=== PATIENT | female | born 2005 | race African-American/Black ===

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

== ENCOUNTER 2024-11-05 18:34 | Emergency (ER) | payer OTHER, SELFPAY ==
--- NOTE | ~2024-11-05 | CT_ITS ---
CLINICAL INDICATION: COMPARISON: . TECHNIQUE: Multiple contiguous axial images of the abdomen and pelvis were performed following the ad ministration of with 100 mL Omnipaque-350 intravenous contrast The dose-length product (DLP) was 191.76 mGy-cm. Automated exposure control and iterative reconstruction technique were employed. FINDINGS/OBSERVATIONS: Visualized lower thorax: The bilateral lung bases are clear. The heart is of normal size, without pericardial effusion. Small hiatal hernia is present. Liver: The liver demonstrates homogeneous enhancement and is not enlarged. Gallbladder and biliary system: The gallbladder is only minimally distended, and otherwise unremarkable. Pancreas: The pancreas enhances homogeneously without ductal dilatation. Spleen: The spleen enhances homogeneously and is not enlarged. Kidneys: The bilateral kidneys enhance symmetrically without hydronephrosis or renal calculi. Adrenal glands: Unremarkable. Gastrointestinal tract: Fecal stasis within the colon. Appendix: The air-filled appendix is of normal caliber (axial series, images 108 through 114). Vasculature: Unremarkable. Lymph nodes: No pathologically enlarged or morphologically suspicious lymph nodes within the retroperitoneum or at the root of the mesentery. Pelvic structures: The bladder is decompressed, and otherwise unremarkable. The uterus is anteverted and anteflexed, and otherwise unremarkable. Body wall and musculoskeletal: No significant degenerative disease within the lower thoracic or lumbosacral spine. IMPRESSION: No acute findings within the abdomen or pelvis, as detailed above. Reviewed, dictated and finalized at location A.
[2024-11-05 18:35] VITALS: BP 108/64; PULSE 127; RESP 16; TEMP 36.6; O2SAT 100
--- OUTSIDE RECORDS SUMMARY | 2024-11-05 18:36 | XMS_ITS | Clinical Summary ---
Author Organization [facility] Address [address] [place] [address] Care Team Providers Care Wood Stainer Name Role Phone Suhail Garibay MD Primary Care Provider [phone] Allergies No known active allergies Medications triamcinolone 0.1 % creamIndications :Intrinsic eczema Apply topically 2 (two) times daily. 80 g 3 2 Active clobetasol (TEMOVATE) 0.05 % creamIndications :Intrinsic eczema Apply topically 2 (two) times daily. 60 g 1 3 Active ARIPiprazole (ABILIFY) 30 MG Tab tabletIndication s:Current moderate episode of major depressive disorder without prior episode ([facility]),Bipola r 2 disorder ([facility]) Take 1 tablet (30 mg total) by mouth daily. 90 tablet 3 4 01/15/20 25 Active Albuterol-Budeso nide (AIRSUPRA) 90-80 MCG/ACT AerosolIndicatio ns:Dyspnea, unspecified type Inhale 1 puff into the lungs every 4 (four) hours as needed (wheezing). 30.1 g 3 4 Active cetirizine (ZYRTEC) 10 MG tabletIndication s:Non-seasonal allergic rhinitis, unspecified trigger Take 1 tablet (10 mg total) by mouth daily. 90 tablet 3 4 07/01/20 25 Active Crisaborole (EUCRISA) 2 % OintmentIndicati ons:Intrinsic eczema Apply 1 Application topically 2 (two) times daily as needed. 360 g 3 4 Active CHIKIS Johnson, (MEDROL DOSEPAK) 4 MG tabletIndication s:Upper respiratory infection, viral 6 TABLETS ON DAY ONE, 5 TABLETS DAY TWO, 4 TABLETS DAY THREE, 3 TABLETS DAY FOUR, 2 TABLETS DAY FIVE, AND 1 TABLET DAY SIX 21 each 4 Active busPIRone (BUSPAR) 10 MG tabletIndication s:Current moderate episode of major depressive disorder without prior episode (CMS/HCC) TAKE 1 TABLET(10 MG) BY MOUTH TWICE DAILY 180 tablet 3 5 Active NORTREL 1/35, 28, 1-35 MG-MCG tabletIndication s:Dysmenorrhea TAKE 1 TABLET DAILY, SKIPPING PLACEBO 112 tablet 3 5 Active albuterol sulfate HFA 108 (90 Base) MCG/ACT inhalerIndicatio ns:Dyspnea, unspecified type Inhale 2 puffs into the lungs every 6 (six) hours as needed for Wheezing. 18 g 3 5 Active Active Problems Problem Noted Date Diagnosed Date Current moderate episode of major depressive disorder without prior episode 08/25/2021 Intrinsic eczema 08/25/2021 Dysmenorrhea 08/25/2021 Encounters Date Type Department Care Team Description 09/26/2024 Telephone [facility] [address], [address] [place] [address] Suhail Garibay MD Medication Problem 09/23/2024 Scan HEALTH INFO SRVCS Scanned, [facility] from Last 3 Months Immunizations Immunization Administration Dates Next Due Dtap 05/25/2009, 5,2004,04/19 Dtap (Generic) 08/17/2005 Flumist (Intranasal LAIV4) 06/03/2015 HPV GARDASIL 9-VALENT 09/30/2015,06/03/2015,03/17 Hepatitis A (Generic) 07/08/2010,05/25/2009 Hepatitis B (Generic Peds) 2004,,2004,03/13 Hib (Generic) 08/17/2005, 5,2004,04/19 Influenza Adult (Generic) 07/08/2010,05/11/2007, 06/13/2005 MMR 05/25/2009,08/10/2005 Menactra 04/01/2015 Meningcoccal Group B (Bexser o)(aka Meningitis) 04/16/2021 Meningococcal (Menactra) 04/20/2021 PFIZER COVID-19 (ORIGINAL FO RMULATION, PURPLE CAP) mRNA, LNP-S, PF, 30 MCG/0.3 ML DOSE 11/05/2020,10/14/2020 Pneumococcal (Prevnar 7) 2004,10/2003,2004,04/19 Polio IPV (Ipol) 05/25/2009, 5,2004,04/19 Tdap (Generic) 04/01/2015 Varicella Vaccine 05/25/2009,08/10/2005 Family History Medical History Relation Comments No Known Problems Father Heart Mother Relation Status Comments Father Mother Social History Tobacco Use Types Packs/Day Years Used Date Smoking Tobacco: Some Days Smokeless Tobacco: Never Tobacco Cessation:Ready to Q uit: No; Counseling Given: Yes Alcohol Use Standard Drinks/Week Comments Yes 2 (1 standard drink = 0.6 oz pur e alcohol) PHQ-2 Answer Date Recorded Patient Health Questionnaire-2 Score 3 01/29/2024 Comments No Sex and Gender Information Value Date Recorded Sex Assigned at Not on file Legal Sex Female 11:48 AM CDT Gender Identity Not on file Sexual Orientation Not on file Last Filed Vital Signs Vital Sign Reading Time Taken Comments Blood Pressure 100/70 05/21/2024 12:56 PM GRAIN WEIGHER Pulse 105 05/21/2024 12:56 PM GRAIN WEIGHER Temperature 36.2 C (97.2 F) 05/21/2024 12:56 PM GRAIN WEIGHER Respiratory Rate 18 05/21/2024 12:5 6 PM GRAIN WEIGHER Oxygen Saturation 99% 05/21/2024 12: 56 PM GRAIN WEIGHER Inhaled Oxygen Concentration - - Weight 54.8 kg (120 lb 14.4 oz) 11/05/2 024 12:56 PM GRAIN WEIGHER Height 152.4 cm (5') 02/11/2023 9:37 PM CDT Body Mass Index 23.61 02/11/2023 9:37 PM CDT Plan of Treatment Health Maintenance Due Date Last Done Comments Annual Physical 02/13/2007 Chlamydia Screening Females ages 16-24 2020 Meningococcal B Vaccine (2 of 2 - Bexsero SCDM 2-dose series) 10/15/2021 04/16/2021 Pneumococcal Vaccine: Pediatrics (0 to 5 Years) and At-Risk Patients (6 to 49 Years) (1 of 2 - PCV) 02/13/2023 2004, 2004, 2004, Additional history exists COVID-19 Vaccine ( - season) 2024 11/05/2020, 10/14/2020 PHQ-2 (Physician [place]) 07/17/2024 01/29/2024 DTaP, Tdap and Td Vaccines (7 - Td or Tdap) 04/01/2025 04/01/2015, 05/25/2009, 08/17/2005, Additional history exists Hepatitis B Vaccines Completed 2004, 2004, 2004, Additional history exists HPV Vaccines Completed 09/30/2015, 05/17, 04/01/2015 Meningococcal Vaccine Completed 04/20/2021, 015 Hepatitis C Completed 01/15/2024 RSV Immunizations Under 20 Months Aged Out No longer eligible based on patient's age to complete this topic Procedures Procedure Name Priority Date/Time Associated Diagnosis Comments HEPATITIS C ANTIBODY W/RFX TO HCV RNA Routine 01/15/2024 11:21 AM CDT Current moderate episode of major depressive disorder without prior episode Bipolar 2 disorder Intrinsic eczema Wyatt's neuroma of left foot Dyspnea, unspecified type Healthcare maintenance Screening for diabetes mellitus (DM) Need for hepatitis C screening test Screen for STD (sexually transmitted disease) Encounter for hepatitis C screening test for low risk patient from Last 3 Months or Most Recently Relevant to Health Maintenance Results * HEPATITIS C ANTIBODY W/RFX TO HCV RNA (01/15/2024 11:21 AM CDT) HEPATITIS C AB NON-REACT EJ NON-REACT EJ [facility] Comment: HCV antibody was non-reactive. There is no laboratory evidence of HCV infection. In most cases, no further action is required. However, if recent HCV exposure is suspected, a test for HCV RNA (test code 59045) is suggested. For additional information please refer to http://education.[employer]/faq/KYY97b9 (This link is being provided for informational/ educational purposes only.) 01/15/2024 11:2 1 AM CDT 01/15/2024 11:25 AM CDT Narrative [facility] - 01/16/2024 6:52 AM CDT PATIENT UNABLE TO VOID; ADVISED TO RETURN FOR COLLECTION. Resulting Agency Comment Performing Organization Information: Site ID: [id number] Name: [facility] Address: [address] [facility] [place] [address] Director: Obdulio Noonan MD Suhail Garibay MD LABORATORY Final Result [facility] [place] [address] [place], [place] [address] from Last 3 Months or Most Recently Relevant to Health Maintenance Insurance [facility] Care Teams Wood Stainer Relationship Specialty Start Date End Date Suhail Garibay MD [address] [facility] [address] [place] [address] PCP - General FAMILY PRACTICE 05/18/21
--- NOTE | 2024-11-05 18:38 | ED.ABDPAIN ---
HPI - Abdominal Pain General Chief Complaint: Abdominal Pain Stated Complaint: abdominal pain Time Seen by Provider: 11/05/24 18:38 Source: patient Mode of arrival: ambulatory Limitations: no limitations History of Present Illness HPI narrative: This is a 19-year-old female who presents to the ED for chief complaint of lower abdominal pain, N/V/D beginning this morning. Patient states that she has had greater than 5 episodes of diarrhea today. Endorses 1 episode of vomiting. States the pain is all across the abdomen but worse in the lower abdomen. Unsure of how to describe the pain. Denies vaginal symptoms, urinary symptoms. Endorses fevers and chills at home. Denies GI bleeding symptoms, chest pain, shortness of breath or cough. Related Data Allergies Allergy/AdvReac Type Severity Reaction Status Date / Time No Known Allergies Allergy Verified 11/05/24 20:01 Review of Systems Review of Systems: All systems as dictated in HPI Exam Narrative: GENERAL: Well-appearing, well-nourished, and in no acute distress. HEAD: Normocephalic, atraumatic. EYES: PERRLA and EOMI. ENT: Nares clear, no rhinorrhea or epistaxis. Mucous membranes moist. Oropharynx without tonsillar hypertrophy exudate or other lesions. NECK: Supple. No adenopathy or masses. CHEST: No respiratory distress. Clear to auscultation. No wheezes rales or rhonchi HEART: Regular rate and rhythm. No murmur heard. Normal peripheral pulses. ABDOMEN: Tenderness across the RLQ, suprapubic abdomen, LLQ. Soft, nondistended, normal active bowel sounds. MSK: Normal range of motion. No edema. SKIN: Warm, dry, no rash. NEURO: Alert and oriented x4. No focal deficits. PSYCH: Normal mood and affect. Course Vital Signs Vital signs: Vital Signs Temperature 97.8 F 11/05/24 18:35 Pulse Rate 127 H 11/05/24 18:35 Respiratory Rate 16 11/05/24 18:35 Blood Pressure 108/64 11/05/24 18:35 Pulse Oximetry 100 11/05/24 18:35 Oxygen Delivery Room Air 11/05/24 18:35 Temperature 97.8 F 11/05/24 18:35 Pulse Rate 127 H 11/05/24 18:35 Respiratory Rate 16 11/05/24 18:35 Blood Pressure 108/64 11/05/24 18:35 Pulse Oximetry 100 11/05/24 18:35 Oxygen Delivery Room Air 11/05/24 18:35 MDM - Abdominal Pain MDM Narrative Medical decision making narrative: This is a 19-year-old female who presents to the ED for chief complaint of abdominal pain, N/V. Vitals show elevated heart rate on arrival. Exam remarkable for lower abdominal tenderness and mild flank tenderness. Lab work showing elevated white count of 10 6 with mild left shift. CMP unremarkable. Urinalysis shows overt UTI 2+ leuks, 51-100 whites 4+ bacteria. CT abdomen pelvis with IV contrast shows no acute findings. Presentation consistent with acute UTI vs pyelonephritis. She is tolerating p.o.. She was given IV fluids, antiemetics and Toradol here with good relief of symptoms. She will be given 10 day course of cefdinir. She received Rocephin IV here. Patient will be discharged in stable condition. Supportive measures discussed and return precautions given. Patient is understanding and agreeable with plan for discharge with PCP follow-up. Differential Diagnosis Differential diagnosis: Likely abdominal pain, acute appendicitis, calculus of kidney, diverticulitis, gastroenteritis, pancreatitis and small bowel obstruction Lab Data 11/05/24 18:56 11/05/24 18:56 Labs: Lab Results 11/05/24 11/05/24 11/05/24 Range/Units 18:56 18:56 18:56 WBC 10.6 H (4.5-10.0) K/mm3 RBC 4.74 (4.2-5.4) M/mm3 Hgb 14.3 (12.0-15.0) g/dL Hct 41.9 (37.0-47.0) % MCV 88.4 (80-100) fl MCH 30.2 (26-34) pg MCHC 34.1 (32-36) g/dl RDW 11.7 (11.5-14.5) % Plt Count 257 (150-375) k/mm3 MPV 9.5 (7.4-10.4) fl Immature Gran % (Auto) 0.4 (0-0.5) % Neut % (Auto) 87.8 H (45.5-73.1) % Lymph % (Auto) 8.2 L (18.3-44.2) % [place] % (Auto) 3.1 (2.6-8.5) % Eos % (Auto) 0.4 (0-4.4) % Baso % (Auto) 0.1 L (0.2-1.2) % Lymph # (Auto) 0.87 L (0.9-3.2) K/mm3 [place] # (Auto) 0.3 (0.1-0.6) K/mm3 Eos # (Auto) 0.0 (0-0.3) K/mm3 Baso # (Auto) 0.0 (0.0-0.1) K/mm3 Abs Immat Gran (auto) 0.04 H (0.00-0.031) K/mm3 Absolute Neuts (auto) 9.3 H (1.3-6.7) K/mm3 Absolute Nucleated RBC 0.000 (0.0-0.012) K/mm3 Nucleated RBC % 0.0 (0.0-0.2) % Sodium 135 L (137-145) mmol/L Potassium 3.7 (3.4-5.0) mmol/L Chloride 103 (98-107) mmol/L Carbon Dioxide 20 L (22-30) mmol/L Anion Gap 12 (4-12) mmol/L BUN 14 (7-17) mg/dL Creatinine 0.77 (0.7-1.0) mg/dL Estim Creat Clear Calc Not Reportable Estimated GFR > 60 (59 - ) Glucose 103 (65-110) mg/dL Calcium 9.2 (8.4-10.2) mg/dL Phosphorus 2.6 Cancelled (2.5-4.5) mg/dL Magnesium 1.7 Cancelled (1.6-2.3) mg/dL Total Bilirubin 0.8 (0.2-1.3) mg/dL AST 28 (14-36) U/L ALT 19 (6-35) U/L Alkaline Phosphatase 50 (38-126) U/L Total Protein 8.0 (6.3-8.2) g/dL Albumin 4.5 (3.5-5.1) g/dL Lipase 25 (23-300) U/L Urine Color Dark yellow (Yellow) Urine Appearance Cloudy H (Clear) Urine pH 5.5 (5.0-9.0) Ur Specific [place] 1.036 H (1.001-1.035) Urine Protein 1+ H (Negative) mg/dL Urine Glucose (UA) Negative (Negative) mg/dL Urine Ketones Trace H (Negative) mg/dL Ur Blood (Man) 3+ H (Negative) Urine Nitrate Negative (Negative) Urine Bilirubin 1+ H (Negative) Urine Urobilinogen 1.0 (<2.0) mg/dL Leukocyte Esterase Rfl 2+ H (Negative) KOLBY/UL Urine RBC 3-5 H (0-2) /hpf Urine WBC 51-100 H (0-3) /hpf Ur Squamous Epith Cells Moderate (Few) /hpf Urine Bacteria 4+ H /hpf Urine Casts 0-2 POC Urine HCG, Qual (Negative) 11/05/24 Range/Units 19:07 WBC (4.5-10.0) K/mm3 RBC (4.2-5.4) M/mm3 Hgb (12.0-15.0) g/dL Hct (37.0-47.0) % MCV (80-100) fl MCH (26-34) pg MCHC (32-36) g/dl RDW (11.5-14.5) % Plt Count (150-375) k/mm3 MPV (7.4-10.4) fl Immature Gran % (Auto) (0-0.5) % Neut % (Auto) (45.5-73.1) % Lymph % (Auto) (18.3-44.2) % [place] % (Auto) (2.6-8.5) % Eos % (Auto) (0-4.4) % Baso % (Auto) (0.2-1.2) % Lymph # (Auto) (0.9-3.2) K/mm3 [place] # (Auto) (0.1-0.6) K/mm3 Eos # (Auto) (0-0.3) K/mm3 Baso # (Auto) (0.0-0.1) K/mm3 Abs Immat Gran (auto) (0.00-0.031) K/mm3 Absolute Neuts (auto) (1.3-6.7) K/mm3 Absolute Nucleated RBC (0.0-0.012) K/mm3 Nucleated RBC % (0.0-0.2) % Sodium (137-145) mmol/L Potassium (3.4-5.0) mmol/L Chloride (98-107) mmol/L Carbon Dioxide (22-30) mmol/L Anion Gap (4-12) mmol/L BUN (7-17) mg/dL Creatinine (0.7-1.0) mg/dL Estim Creat Clear Calc Estimated GFR (59 - ) Glucose (65-110) mg/dL Calcium (8.4-10.2) mg/dL Phosphorus (2.5-4.5) mg/dL Magnesium (1.6-2.3) mg/dL Total Bilirubin (0.2-1.3) mg/dL AST (14-36) U/L ALT (6-35) U/L Alkaline Phosphatase (38-126) U/L Total Protein (6.3-8.2) g/dL Albumin (3.5-5.1) g/dL Lipase (23-300) U/L Urine Color (Yellow) Urine Appearance (Clear) Urine pH (5.0-9.0) Ur Specific [place] (1.001-1.035) Urine Protein (Negative) mg/dL Urine Glucose (UA) (Negative) mg/dL Urine Ketones (Negative) mg/dL Ur Blood (Man) (Negative) Urine Nitrate (Negative) Urine Bilirubin (Negative) Urine Urobilinogen (<2.0) mg/dL Leukocyte Esterase Rfl (Negative) KOLBY/UL Urine RBC (0-2) /hpf Urine WBC (0-3) /hpf Ur Squamous Epith Cells (Few) /hpf Urine Bacteria /hpf Urine Casts POC Urine HCG, Qual Negative (Negative) Imaging Data Radiologist's impression: ITS Impressions Abdomen/Pelvis CT 11/05/24 19:44 IMPRESSION: No acute findings within the abdomen or pelvis, as detailed above. Discharge Plan Discharge Clinical Impression: Urinary tract infection Patient Disposition: Home Condition: Stable Instructions: Antibiotic Form Additional Instructions: Your exam and imaging today are reassuring. There is evidence of a urinary tract infection. Please take antibiotics for 10 days. Use Zofran as needed for nausea. Use both Tylenol 500 mg and ibuprofen 600 mg as needed for pain or fevers every 6 hours. Follow-up closely with PCP on this issue this week. If you have any new or worsening symptoms please return to the ER for further evaluation. Patient Language: Somali Prescriptions: New cefdinir 300 mg capsule 300 mg PO Q12H Qty: 20 0RF ondansetron 4 mg tablet,disintegrating 4 mg PO Q8H PRN (Reason: nausea and vomiting) Qty: 10 0RF Follow-up/Referrals: Lani,Suhail Davis MD [Primary Care Provider] - Time of Disposition: 20:17
[2024-11-05 19:04] LABS: Basophils Percent Auto 0.1 % (0.2-1.2); Eosinophils Percent Auto 0.4 % (0-4.4); Hematocrit 41.9 % (37.0-47.0); Hemoglobin 14.3 g/dL (12.0-15.0); Immature Granulocyte Absolute 0.04 K/mm3 (0.00-0.031); Immature Granulocyte Percent A 0.4 % (0-0.5); Lymphocytes Absolute Auto 0.87 K/mm3 (0.9-3.2); Lymphocytes Percent Auto 8.2 % (18.3-44.2); Mean Corpuscular HGB Conc 34.1 g/dl (32-36); Mean Corpuscular Hemoglobin 30.2 pg (26-34); Mean Corpuscular Volume 88.4 fl (80-100); Mean Platelet Volume 9.5 fl (7.4-10.4); Monocytes Absolute Auto 0.3 K/mm3 (0.1-0.6); Monocytes Percent Auto 3.1 % (2.6-8.5); Neutrophils Absolute Auto 9.3 K/mm3 (1.3-6.7); Neutrophils Percent Auto 87.8 % (45.5-73.1); Platelet Count Result 257 k/mm3 (150-375); Red Blood Count 4.74 M/mm3 (4.2-5.4); Red Cell Distribution Width 11.7 % (11.5-14.5); White Blood Count 10.6 K/mm3 (4.5-10.0)
[2024-11-05 19:08] LABS: Add Urine Microscopic? YES; Appearance Urine Cloudy (Clear); Bacteria Urine 4+ /hpf; Bilirubin Urine 1+ (Negative); Blood Urine 3+ (Negative); Color Urine Dark Yellow (Yellow); Glucose Urine UA Negative (Negative); Ketones Urine Trace mg/dL (Negative); Leukocyte Esterase Ur 2+ LEU/UL (Negative); Nitrate Urine Negative (Negative); Non Pathogenic Casts 0-2; Protein Urine 1+ mg/dL (Negative); Specific Grav Ur 1.036 (1.001-1.035); Squamous Epithelial Cell Urine Moderate /hpf (Few); WBC Urine 51-100 /hpf (0-3); pH Urine 5.5 (5.0-9.0)
[2024-11-05 19:09] LABS: BEDSIDEPREGUCG Negative (Negative)
[2024-11-05 19:15] LABS: Alanine Aminotransferase 19 U/L (6-35); Albumin Level 4.5 g/dL (3.5-5.1); Alkaline Phosphatase 50 U/L (38-126); Anion Gap 12 mmol/L (4-12); Aspartate Amino Transferase 28 U/L (14-36); Bilirubin,Total 0.8 mg/dL (0.2-1.3); Blood Urea Nitrogen 14 mg/dL (7-17); Calcium 9.2 mg/dL (8.4-10.2); Carbon Dioxide 20 mmol/L (22-30); Chloride 103 mmol/L (98-107); Estimated Glomerular Filt Rate > 60; Glucose 103 mg/dL (65-110); Lipase 25 U/L (23-300); Magnesium 1.7 mg/dL (1.6-2.3); Phosphorus 2.6 mg/dL (2.5-4.5); Potassium 3.7 mmol/L (3.4-5.0); Sodium 135 mmol/L (137-145)
[2024-11-05] MEDS: SODIUM CHLORIDE 0.9% IV 1,000 ML 999 ML IV CONT ×2 (19:36)
[2024-11-05] MEDS: ONDANSETRON INJ 4 MG/2 ML VIAL IV PUSH (19:36)
[2024-11-05] MEDS: KETOROLAC 15 MG/ML VIAL (*BKC) IV PUSH (20:00)
== END 2024-11-05 21:34 | disposition home or self-care (01) ==
PROVIDERS: Emergency Provider Physician Assistant; PCP Family Medicine
DX: N39.0 Urinary tract infection, site not specified (principal)
CPT/HCPCS: 36415; 74177; 80053; 81001; 81025; 83690; 83735; 84100; 85025; 96361; 96365; 96375; 99284; J0696; J1885; J2405; J7030; Q9967